=== PATIENT | male | born 1960 | race Caucasian/White ===

== ENCOUNTER → 2021-12-13 | Outpatient (CLI) | payer OTHER ==
--- NOTE | 2021-12-14 10:50 | ECHOF ---
Referral Reason:I10 Essential (primary) Hypertension MEASUREMENTS -------- HEIGHT: 182.9 cm WEIGHT: 147.4 kg BP: RVIDd: 3.7 cm (< 3.3) IVSd: 1.3 cm (0.6 - 1.1) LVIDd: 5.9 cm (3.9 - 5.3) LVPWd: 1.3 cm (0.6 - 1.1) IVSs: 1.9 cm LVIDs: 3.3 cm LVPWs: 1.6 cm LAESV Index (A-L): 17.04 ml/m Ao Diam: 3.4 cm (2.0 - 3.7) AV Cusp: 2.5 cm (1.5 - 2.6) LA Diam: 4.8 cm (2.7 - 3.8) MV E [place]: 0.56 m/s MV DecT: 188 ms MV A [place]: 0.79 m/s MV E/A Ratio: 0.71 RAP: 5.00 mmHg RVSP: 14.73 mmHg FINDINGS -------- Sinus rhythm. This was a technically adequate study. Morbid Obesity The left ventricular size is normal. There is mild concentric left ventricular hypertrophy. Overa ll left ventricular systolic function is low-normal with, an EF between 50 - 55 %. The right ventricle is normal in size. The left atrial size is normal. The right atrial size is normal. The aortic valve is trileaflet, and appears structurally normal. No aortic stenosis or regurgitation. Mild mitral regurgitation is present. Mild tricuspid regurgitation present. Right ventricular systolic pressure is normal at < 35 mmHg. There is no pulmonic regurgitation present. Echo free space indicative of a pericardial fat pad. CONCLUSIONS -------- 1. This was a technically adequate study. 2. Morbid Obesity 3. The left ventricular size is normal. 4. There is mild concentric left ventricular hypertrophy. 5. Overall left ventricular systolic function is low-normal with, an EF between 50 - 55 %. 6. The right ventricle is normal in size. 7. The left atrial size is normal. 8. The right atrial size is normal. 9. The aortic valve is trileaflet, and appears structurally normal. No aortic stenosis or regurgitati on. 10. Mild mitral regurgitation is present. 11. Mild tricuspid regurgitation present. 12. There is no pulmonic regurgitation present. 13. Echo free space indicative of a pericardial fat pad. [employer]AC[employer]IES MAINTENANCE WORKER: Lillian Hunt RDCS
== END | disposition home or self-care (01) ==
LOC: RADECHMAIN 13:16
PROVIDERS: ATTEND Physician Assistant Medical
DX: I11.9 Hypertensive heart disease without heart failure (principal); E66.01 Morbid (severe) obesity due to excess calories; I08.1 Rheumatic disorders of both mitral and tricuspid valves
CPT/HCPCS: 93306

== ENCOUNTER → 2024-03-06 | Outpatient (CLI) | payer OTHER ==
--- NOTE | 2024-03-08 10:38 | XR ---
EXAMINATION TYPE: XR Hip Bilateral Complete DATE OF EXAM: 03/06/2024 9:33 AM CLINICAL INDICATION:Male, 63 years old with history of M25.551 RIGHT HIP PAIN M54.50 LOW BACK PAIN; P HH COMPARISON: None. TECHNIQUE: XR Hip Bilateral Complete; hip was examined in the frontal and lateral projections and a A P pelvis. FINDINGS: No evidence for acute process, joint dislocation or significant soft tissue swelling. Osteo phyte formation of the superior acetabulum of the hip. There is mild to moderate joint space narrowin g. IMPRESSION: 1. No evidence for acute process. 2. Moderate to severe hip osteoarthrosis.
--- NOTE | 2024-03-08 10:39 | XR ---
EXAMINATION TYPE: XR lumbosacral spine min 4V DATE OF EXAM: 03/06/2024 9:33 AM CLINICAL INDICATION:Male, 63 years old with history of M25.551 RIGHT HIP PAIN M54.50 LOW BACK PAIN; P HH COMPARISON: None TECHNIQUE: XR lumbosacral spine min 4V - Frontal, lateral , bilateral oblique and coned in L5-S1 late ral views of the spine. FINDINGS: No evidence of any acute osseous pathology. No evidence of loss of vertebral body height i s seen. There is normal alignment of the lumbar vertebral bodies. Scattered disc space narrowing. Mul tilevel marginal osteophyte formation throughout the visualized spine. There is moderate facet joint arthropathy throughout the spine. Scattered at least mild neural foraminal stenosis. IMPRESSION: 1. No acute fracture. 2. Moderate multilevel disc degeneration.
--- NOTE | 2024-03-08 10:40 | XR ---
EXAMINATION TYPE: XR thoracic spine complete DATE OF EXAM: 03/06/2024 9:33 AM CLINICAL INDICATION:Male, 63 years old with history of M25.551 RIGHT HIP PAIN M54.50 LOW BACK PAIN; P HH COMPARISON: None TECHNIQUE: XR thoracic spine complete views of the spine in Frontal and lateral projections. FINDINGS: No evidence of acute fracture. There is scattered multilevel disk space narrowing without loss of ve rtebral body height. There is normal alignment of the thoracic vertebral bodies. Scattered osteophyte formation along the anterior and lateral aspects of the vertebral bodies. Neural foramen are patent given limitations of this exam. Spinal canal appears patent. IMPRESSION: 1. No acute osseous pathology. 2. Moderate disc degeneration changes of the spine.
--- NOTE | 2024-03-08 10:40 | XR ---
EXAMINATION TYPE: XR knee complete RT DATE OF EXAM: 03/06/2024 9:33 AM CLINICAL INDICATION:Male, 63 years old with history of M25.551 RIGHT HIP PAIN M54.50 LOW BACK PAIN; COMPARISON: None. TECHNIQUE: XR knee complete RT; examined in Frontal, lateral and oblique projections. FINDINGS: No evidence of any acute osseous pathology, soft tissue swelling, or joint effusion is no tiffany. Tricompartmental osteophyte formation involving the femoral condyles, tibial plateau and patella . Mild joint space narrowing. IMPRESSION: 1. No acute osseous pathology. 2. Mild to moderate tricompartmental osteoarthritic changes.
== END | disposition home or self-care (01) ==
LOC: RADXRMAIN 08:31
PROVIDERS: ATTEND Internal Medicine
DX: M16.0 Bilateral primary osteoarthritis of hip (principal); M51.37 Other intervertebral disc degeneration, lumbosacral region; M17.11 Unilateral primary osteoarthritis, right knee
CPT/HCPCS: 72072; 72110; 73521

== ENCOUNTER → 2025-05-11 | Outpatient (CLI) | payer MEDICARE, OTHER ==
[2025-05-11 09:03] LABS: African American GFR (CKD) 89 (>60 ml/min/1.73 sqM); Blood Urea Nitrogen 25 mg/dL (9-20); Non-African American GFR(CKD) 77 (>60 ml/min/1.73 sqM)
--- NOTE | 2025-05-11 09:50 | CT ---
EXAMINATION TYPE: CT cervical spine w con CT DLP: 743 mGycm, Automated exposure control for dose reduction was used. DATE OF EXAM: 05/11/2025 9:35 AM COMPARISON: None. CLINICAL INDICATION:Male, 64 years old with history of M54.2 cervicalgia; PHH, Chronic pain, bilatera l hand numbness, neuropathy, pain TECHNIQUE: Axial CT images from the skull base to the inferior aspect of T2 we obtained with 100 mL o f Isovue 300 intravenous contrast. Coronal and sagittal reformatted images were also reviewed. FINDINGS: Fracture: None. Osseous structures: Multilevel anterior osteophytosis with endplate sclerosis. Vertebral alignment: Within normal limits. Spinal canal/Neural Foramina: C2-C3: No spinal canal stenosis. No neuroforaminal stenosis. C3-C4: No spinal canal stenosis. No neuroforaminal stenosis. C4-C5: No spinal canal stenosis. Uncovertebral joint hypertrophy. Mild bilateral neural foraminal hellen nosis. C5-C6: Posterior disc osteophyte complex resulting in mild spinal canal stenosis. Uncovertebral joint hypertrophy with moderate bilateral neural foraminal stenosis. C6-C7: Posterior disc osteophyte complex of mild spinal canal stenosis. Uncovertebral joint hypertrop hy with moderate left and mild right neural foramina stenosis. C7-T1: No spinal canal stenosis. No neuroforaminal stenosis. Neck soft tissues: Prevertebral soft tissues are within normal limits. No abnormal contrast enhanceme nt. No visualized lymphadenopathy. Mild calcified plaque at the bilateral carotid bifurcations. Other: The airway is patent. IMPRESSION: 1. No evidence of cervical spine fracture. 2. [id number] multilevel degenerative disc disease as described above. [facility], , 05/11/2025 9:47 AM
== END | disposition home or self-care (01) ==
LOC: RADCTMAIN 08:25
PROVIDERS: ATTEND Family Medicine
DX: M50.30 Other cervical disc degeneration, unspecified cervical region (principal); M62.541 Muscle wasting and atrophy, not elsewhere classified, right hand; M62.542 Muscle wasting and atrophy, not elsewhere classified, left hand
CPT/HCPCS: 82565; 84520; 72126; 36415; Q9967